=== PATIENT | male | born 1985 | race American Indian/Alaskan Native ===

== ENCOUNTER 2016-06-12 03:08 | Emergency (ER) | payer MEDICARE ==
[2016-06-12 04:08] VITALS: BP 102/68
[2016-06-12 04:47] LABS: Basophils % (Auto) 0.4 % (0.0-1.8); Eosinophils % (Auto) 0.1 % (0.0-4.3); Hematocrit 42.7 % (35.5-45.6); Hemoglobin 13.7 gm/dl (11.8-15.2); Mean Corpuscular HGB Conc 32 % (32-34); Mean Corpuscular Volume 80 fl (84-94); Platelet Count 222 K/mm3 (140-440); Red Blood Count 5.35 M/mm3 (3.65-5.03); Red Cell Distribution Width 14.5 % (13.2-15.2); White Blood Count 10.8 K/mm3 (4.5-11.0)
[2016-06-12 05:12] LABS: Anion Gap 19 mmol/L; BUN/Creatinine Ratio 16.36; Blood Urea Nitrogen 18 mg/dL (9-20); Calcium 9.4 mg/dL (8.4-10.2); Carbon Dioxide 26 mmol/L (22-30); Chloride 97.6 mmol/L (98-107); Glucose 109 mg/dL (75-100); Potassium 3.7 mmol/L (3.6-5.0); Sodium 139 mmol/L (137-145)
[2016-06-12 05:21] LABS: Mean Corpuscular Hemoglobin 26 pg (28-32)
--- NOTE | 2016-06-14 16:54 | ED Elopement Review ---
ED Pt Elopement review - Results review Lab results: Laboratory Tests 06/12/16 06/12/16 06/12/16 04:31 04:31 04:31 WBC 10.8 RBC 5.35 H Hgb 13.7 Hct 42.7 MCV 80 L MCH 26 L MCHC 32 RDW 14.5 Plt Count 222 Lymph % (Auto) 21.9 [place] % (Auto) 4.9 Eos % (Auto) 0.1 Baso % (Auto) 0.4 Lymph # 2.4 [place] # 0.5 Eos # 0.0 Baso # 0.0 Seg Neutrophils % 72.7 H Seg Neutrophils # 7.9 H Sodium 139 Potassium 3.7 Chloride 97.6 L Carbon Dioxide 26 Anion Gap 19 BUN 18 Creatinine 1.1 Estimated GFR > 60 BUN/Creatinine Ratio 16.36 Glucose 109 H Calcium 9.4 Plasma/Serum Alcohol < 0.01 - Call Back decision Pt Call Back Decision: No action required
== END 2016-06-12 10:00 | disposition left against medical advice (07) ==
LOC: ED 03:08 → EEVIPCON 03:08 → ED 10:00
DX: Z00.8 Encounter for other general examination (principal); Z53.21 Procedure and treatment not carried out due to patient leaving prior to being seen by health care provider
CPT/HCPCS: 36415; 80048; 85025; G0480; 80320

== ENCOUNTER 2017-02-05 11:49 | Emergency (ER) | payer MEDICARE ==
--- NOTE | 2017-02-05 16:02 | Emergency Department Report ---
ED General Adult HPI - General Chief complaint: Skin Rash Stated complaint: ITCHING Time Seen by Provider: 02/05/17 15:41 Source: patient Mode of arrival: Ambulatory Limitations: No Limitations - History of Present Illness Initial comments: Pt states he needs something for the itching. PT states he is afraid he has caught crabs. PT denies seeing any insect or bugs on him. PT c/o itching x 3 days. PT states he is living at [place] and a lot of people share things and are itching. PT states his itching is worse at night. PT states he itches everywhere but it is worse on his hands and feet. PT states he has not noticed a rash. PT denies other symptoms. MD Complaint: Itching. -: Gradual, days(s) Location: upper extremity, lower extremity Severity scale (0 -10): 0 Quality: constant (itching ) Consistency: constant Associated Symptoms: denies: chest pain, fever/chills, nausea/vomiting, rash - Related Data Home Medications Medication Instructions Recorded Confirmed Last Taken Benztropine [Cogentin] 1 mg PO BID 06/07/13 06/07/13 06/07/13 12:00 risperiDONE [Risperdal] 0.5 tab PO BID 06/07/13 06/07/13 06/07/13 12:00 Previous Rx's Medication Instructions Recorded Last Taken Type HYDROcodone/APAP 5-325 [[place] 1 each PO Q6HR PRN #12 tablet 06/07/13 Unknown Rx 5/325 mg] Prednisone [predniSONE] 20 mg PO QDAY #5 tab 07/18/13 Unknown Rx Lidocaine Viscous 2% [Xylocaine 10 ml MM Q3H PRN #240 ml 10/21/13 Unknown Rx Viscous 2%] Permethrin 5% [Acticin 5% CREAM] 1 applicatio TP ONCE #1 tube 02/05/17 Unknown Rx hydrOXYzine PAMOATE [Vistaril] 25 mg PO Q6HR PRN #12 capsule 02/05/17 Unknown Rx Allergies Allergy/AdvReac Type Severity Reaction Status Date / Time iodine Allergy Itching Verified 06/07/13 14:59 ED Review of Systems ROS: Stated complaint: ITCHING Other details as noted in HPI Comment: All other systems reviewed and negative Constitutional: denies: chills, fever Cardiovascular: denies: chest pain Gastrointestinal: denies: abdominal pain, nausea, vomiting Musculoskeletal: denies: back pain Skin: denies: rash Neurological: denies: headache ED Past Medical Hx - Past Medical History Hx Psychiatric Treatment: Yes (schizophrenia) Additional medical history: DRUG ABUSE - Surgical History Past Surgical History?: No - Social History Smoking Status: Never Smoker Substance Use Type: None, Cocaine, Marijuana - Medications Home Medications: Home Medications Medication Instructions Recorded Confirmed Last Taken Type Benztropine [Cogentin] 1 mg PO BID 06/07/13 06/07/13 06/07/13 12:00 History HYDROcodone/APAP 5-325 [[place] 1 each PO Q6HR PRN #12 tablet 06/07/13 Unknown Rx 5/325 mg] risperiDONE [Risperdal] 0.5 tab PO BID 06/07/13 06/07/13 06/07/13 12:00 History Prednisone [predniSONE] 20 mg PO QDAY #5 tab 07/18/13 Unknown Rx Lidocaine Viscous 2% [Xylocaine 10 ml MM Q3H PRN #240 ml 10/21/13 Unknown Rx Viscous 2%] Permethrin 5% [Acticin 5% CREAM] 1 applicatio TP ONCE #1 tube 02/05/17 Unknown Rx hydrOXYzine PAMOATE [Vistaril] 25 mg PO Q6HR PRN #12 capsule 02/05/17 Unknown Rx ED Physical Exam - General Limitations: No Limitations General appearance: alert, in no apparent distress - Head Head exam: Present: atraumatic, normocephalic, normal inspection - Eye Eye exam: Present: normal appearance. Absent: PERRL, EOMI, conjunctival injection - ENT ENT exam: Present: normal exam, mucous membranes moist, normal external ear exam - Neck Neck exam: Present: normal inspection, tenderness, full ROM - Respiratory Respiratory exam: Present: normal lung sounds bilaterally. Absent: respiratory distress, chest wall tenderness - Cardiovascular Cardiovascular Exam: Present: regular rate, normal rhythm, normal heart sounds - GI/Abdominal GI/Abdominal exam: Present: soft. Absent: tenderness, guarding, rebound - Extremities Exam Extremities exam: Present: normal inspection, full ROM - Back Exam Back exam: Present: normal inspection, full ROM. Absent: tenderness, CVA tenderness (R), CVA tenderness (L) - Neurological Exam Neurological exam: Present: alert, oriented X3, normal gait - Psychiatric Psychiatric exam: Present: flat affect. Absent: anxious - Skin Skin exam: Present: warm, dry, intact, rash - Expanded Skin Exam Expanded Type of lesion: Absent: abscess, laceration Description of rash: Present: erythematous, macular (rash to L 5th finger and L 2nd toe. ). Absent: swelling, papular ED Course Vital Signs 02/05/17 02/05/17 11:56 16:41 Temperature 98.2 F 99 F Pulse Rate 71 61 Respiratory 17 16 Rate Blood Pressure 119/72 Blood Pressure 103/63 [Left] O2 Sat by Pulse 96 98 Oximetry - Reevaluation(s) Reevaluation #1: 02/05/17 16:09 History and exam findings are concerning for scabies. PT aware of dx and plan of care. - Pulse Oximetry Interpretation Digit-Finger Initial Pulse Oximetry Readin Actions Taken: none ED Medical Decision Making - Differential Diagnosis rash, scabies Critical Care Time: No Critical care attestation.: If time is entered above; I have spent that time in minutes in the direct care of this critically ill patient, excluding procedure time. ED Disposition Clinical Impression: Scabies, Itching Disposition: DC-01 TO HOME OR SELFCARE Is pt being admited?: No Does the pt Need Aspirin: No Condition: Stable Instructions: Scabies (ED) Additional Instructions: Do not drink alcohol or drive after taking Vistaril. Follow up with PCP in 3-5 days close contacts with rash will need treatment. Prescriptions: hydrOXYzine PAMOATE [Vistaril] 25 mg PO Q6HR PRN #12 capsule PRN Reason: Itching Permethrin 5% [Acticin 5% CREAM] 1 applicatio TP ONCE #1 tube Referrals: PRIMARY CARE, [Primary Care Provider] - 3-5 Days EMMETT HOPKINS MD [Staff Physician] - 3-5 Days [facility] [Outside] - 3-5 Days Time of Disposition: 16:12
[2017-02-05 16:55] VITALS: BP 103/63
== END 2017-02-05 16:55 | disposition home or self-care (01) ==
LOC: ED 11:49
DX: B86 Scabies (principal); F14.10 Cocaine abuse, uncomplicated; F12.10 Cannabis abuse, uncomplicated; F20.9 Schizophrenia, unspecified
CPT/HCPCS: 99282

== ENCOUNTER 2017-02-07 09:05 | Emergency (ER) | payer MEDICARE ==
--- NOTE | 2017-02-07 11:24 | Emergency Department Report ---
ED Rash HPI - HPI Chief Complaint: Skin Rash Stated Complaint: RASH Time Seen by Provider: 02/07/17 10:58 Duration: 3 Days Location: Chest, Back, Abdomen, Upper Extremities Suspected Cause: Unknown Rash Symptoms: Yes Itching (to chest, back, abdomen and upper extremities), No Facial Swelling, No Tongue/Oral Swelling, No Breathing Difficulties, No Choking Sensation, No Wheezing/Dyspnea, No Peeling, No Blistering, No Fever, No Lightheaded, No Malaise, No Myalgias Severity: moderate (itching. no pain) Other History: Patient was here on 02/05/2017 and was treated for scabies with Vistaril and permethrin cream. He is now back report that he has a rash on his body that is iching. He said he uses permethrin cream and medication was given to him on 02/05 2017 and he felt better but now in the last 3 days he is having recurring rash and itching that is not similar to previous complaints. Immunizations up-to-date. He is not having any respiratory complaints. Denies any fever or chills. ED Review of Systems ROS: Stated complaint: RASH Other details as noted in HPI Comment: All other systems reviewed and negative Constitutional: no symptoms reported ENT: denies: throat pain, congestion Respiratory: no symptoms reported Cardiovascular: denies: chest pain, palpitations, edema, syncope Gastrointestinal: denies: nausea, vomiting Musculoskeletal: denies: back pain, joint swelling, arthralgia, myalgia Skin: rash, pruritus Neurological: denies: headache, numbness, paresthesias, confusion, abnormal gait , vertigo ED Past Medical Hx - Past Medical History Previous Medical History?: Yes Hx Psychiatric Treatment: Yes (schizophrenia) Additional medical history: DRUG ABUSE - Surgical History Past Surgical History?: No - Family History Family history: no significant - Social History Smoking Status: Current Every Day Smoker Substance Use Type: None Other Social History: Currently residing at [facility] Home Medications: Home Medications Medication Instructions Recorded Confirmed Last Taken Type Benztropine [Cogentin] 1 mg PO BID 06/07/13 06/07/13 06/07/13 12:00 History HYDROcodone/APAP 5-325 [[place] 1 each PO Q6HR PRN #12 tablet 06/07/13 Unknown Rx 5/325 mg] risperiDONE [Risperdal] 0.5 tab PO BID 06/07/13 06/07/13 06/07/13 12:00 History Prednisone [predniSONE] 20 mg PO QDAY #5 tab 07/18/13 Unknown Rx Lidocaine Viscous 2% [Xylocaine 10 ml MM Q3H PRN #240 ml 10/21/13 Unknown Rx Viscous 2%] Permethrin 5% [Acticin 5% CREAM] 1 applicatio TP ONCE #1 tube 02/05/17 Unknown Rx hydrOXYzine PAMOATE [Vistaril] 25 mg PO Q6HR PRN #12 capsule 02/07/17 Unknown Rx predniSONE [Deltasone] 50 mg PO QDAY #5 tab 02/07/17 Unknown Rx Rash Exam - Exam General: Vital signs noted. No distress. Alert and acting appropriately. 31 year-old male well-nourished well-developed in no acute distress. HEENT: No Periorbital Edema, No Conjuctival Injection, No Chemosis, No Perioral Edema, No Tongue Edema, No Uvular Edema, No Compromised Airway, No Drooling Lungs: Yes Good Air Exchange, No Wheezes, No [place], No Stridor, No Cough, No Labored Respirations, No Retractions, No Use of Accessory Muscles, No Other Abnormal Lung Sounds Skin: Yes Maculopapular Rash (located and sparsely scattered to upper extremity , chest and abdomen. Very few areas also to upper back.), Yes Erythema (to areas were rash located. No induration), No Morbilliform rash, No Bulla(e), No Excoriations, No Weeping, No Tenderness, No Edema, No Encrustations Other: Positive: Abdomen Normal, Neurologic Normal, Musculoskeletal Normal ED Course Vital Signs 02/07/17 09:08 Temperature 98.2 F Pulse Rate 85 Respiratory 16 Rate Blood Pressure 121/64 O2 Sat by Pulse 98 Oximetry - Reevaluation(s) Reevaluation #1: 02/07/17 12:27 Patient was given Decadron 10 mg IM and emergency room for acute rash with pruritus. ED Medical Decision Making - Medical Decision Making ED course: I discussed the patient that he will need to follow-up with equine manager regarding rash. I told him he will need to have skin testing to see what he is allergic to. Physical findings were contacted dermatitis with maculopapular rash scattered sparsely to anterior and posterior torso and bilateral upper extremity. Patient is not having any respiratory difficulties. He was given Decadron 10 mg IM in emergency room. I discussed diagnosis and treatment plan with patient and he voices understanding. Patient discharged home with prescription for prednisone and Atarax and to follow-up with equine manager as discussed. Critical care attestation.: If time is entered above; I have spent that time in minutes in the direct care of this critically ill patient, excluding procedure time. ED Disposition Clinical Impression: Pruritic condition Contact dermatitis Qualifiers: Contact dermatitis type: unspecified Contact dermatitis trigger: unspecified trigger Qualified Code(s): L25.9 - Unspecified contact dermatitis, unspecified cause Disposition: DC- TO HOME OR SELFCARE Is pt being admited?: No Does the pt Need Aspirin: No Condition: Stable Instructions: Contact Dermatitis (ED), Itchy Skin (ED) Additional Instructions: Please follow up with equine manager as instructed to have allergy testing of the skin Please take medication as prescribed for rash. Please do not drive or operate heavy machinery while taking Atarax as this can cause some drowsiness. Increase fluid intake Keep affected areas Clean and dry Prescriptions: hydrOXYzine PAMOATE [Vistaril] 25 mg PO Q6HR PRN #12 capsule PRN Reason: Itching predniSONE [Deltasone] 50 mg PO QDAY #5 tab Referrals: PRIMARY CARE, [Primary Care Provider] - 3-5 Days Forms: Work/School Release Form(ED)
[2017-02-07] MEDS ORDERED: DECADRON IM STA (11:25)
[2017-02-07 12:53] VITALS: BP 118/70
== END 2017-02-07 12:54 | disposition home or self-care (01) ==
LOC: ED 09:05
DX: L25.9 Unspecified contact dermatitis, unspecified cause (principal); F20.9 Schizophrenia, unspecified; F17.200 Nicotine dependence, unspecified, uncomplicated; Z88.8 Allergy status to other drugs, medicaments and biological substances
CPT/HCPCS: 96372; 99282; J1100

== ENCOUNTER 2017-02-07 10:30 | Emergency (ER) | payer MEDICARE | END 2017-02-07 10:31 | disposition home or self-care (01) | LOC: ED 10:30 | DX: R21 Rash and other nonspecific skin eruption (principal); Z53.21 Procedure and treatment not carried out due to patient leaving prior to being seen by health care provider ==

== ENCOUNTER 2017-02-14 10:29 | Emergency (ER) | payer SELFPAY | END 2017-02-14 10:58 | disposition left against medical advice (07) | LOC: ED 10:29 | DX: R51 Headache (principal); Z53.21 Procedure and treatment not carried out due to patient leaving prior to being seen by health care provider ==

== ENCOUNTER 2017-10-25 15:10 | Emergency (ER) | payer SELFPAY ==
[2017-10-25 16:06] VITALS: BP 117/66
== END 2017-10-25 16:02 | disposition left against medical advice (07) ==
LOC: ED 15:10
DX: Z76.0 Encounter for issue of repeat prescription (principal); Z53.21 Procedure and treatment not carried out due to patient leaving prior to being seen by health care provider

== ENCOUNTER 2017-10-31 12:44 | Emergency (ER) | payer MEDICARE ==
[2017-10-31 12:52] VITALS: BP 128/70
--- NOTE | 2017-10-31 13:43 | Emergency Department Report ---
Noni Doc - Documentation Documentation: I briefly evaluated Mr. Alvarado alongside my colleague Kenny Silvestre NP. Patient is concerned for chest congestion. He also made multiple benign delusional statements. He denies homicidal or suicidal ideation. He denies command hallucinations. He states that he hears the voices of his family members. He has stopped taking Risperdal and Zyprexa for the past several days. He is concerned for gynecomastia and possible fat deposits in his buttocks. He heard on the TV commercial that these are the side effects of his antipsychotic medications. He has been taking antipsychotic medication for the last 10 years without adverse medical consequences. I strongly encouraged him to resume his medications. We will provide a prescription for Risperdal. Mr. Alvarado is appropriate for discharge. He does not appear to be a harm to himself or others. He is calm. He is cooperative. He has appropriate insight.
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
== END 2017-10-31 14:10 | disposition home or self-care (01) ==
LOC: ED 12:44
DX: F20.9 Schizophrenia, unspecified (principal); F17.200 Nicotine dependence, unspecified, uncomplicated; Z91.02 Food additives allergy status
CPT/HCPCS: 99282

== ENCOUNTER 2018-08-10 04:05 | Emergency (ER) | payer MEDICARE | END 2018-08-10 04:08 | disposition left against medical advice (07) | LOC: ED 04:05 ==

== ENCOUNTER 2018-08-13 18:27 | Emergency (ER) | payer MEDICARE ==
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
== END 2018-08-13 20:45 | disposition home or self-care (01) ==
LOC: ED 18:27

== ENCOUNTER 2019-06-13 16:08 | Outpatient (CLI) | payer MEDICARE ==
--- NOTE | 2019-06-13 17:10 | XRay Report ---
RIGHT LOWER LEG 2 VIEWS INDICATION / CLINICAL INFORMATION: Right lower leg pain. COMPARISON: None available. FINDINGS: BONES / JOINT(S): There is no evidence of fracture, subluxation or destructive lesion.. There are min imal degenerative changes involving the knee. There is mild spurring at the insertion of the Achilles tendon on the calcaneus. SOFT TISSUES: No significant abnormality. ADDITIONAL FINDINGS: None. IMPRESSION: No acute abnormality. Signer Name: Efraín Turcios MD Signed: 06/13/2019 5:06 PM Workstation Name: [id number]
--- NOTE | 2019-06-13 17:21 | XRay Report ---
BILATERAL FEET 6 VIEWS INDICATION / CLINICAL INFORMATION: Bilateral foot pain. COMPARISON: None available. FINDINGS: BONES / JOINT(S): There are minimally displaced fractures of the right third and fourth proximal phal anges at the level of the proximal shafts appear acute or subacute. There may be mild bony callus for mation present. There is minimal spurring at the insertion of the Achilles tendon on the right calcan eus with mild spurring at the insertion of the Achilles tendon on the left calcaneus. No significant arthritis. SOFT TISSUES: No significant abnormality. ADDITIONAL FINDINGS: None. IMPRESSION: Fractures of the right third and fourth proximal phalanges. Signer Name: Efraín Turcios MD Signed: 06/13/2019 5:17 PM Workstation Name: [id number]
== END 2019-06-13 16:09 | disposition home or self-care (01) ==
LOC: XRAY 16:08
PROVIDERS: ATTEND Orthopaedic Surgery
DX: S92.811A Other fracture of right foot, initial encounter for closed fracture (principal); M77.32 Calcaneal spur, left foot; M77.31 Calcaneal spur, right foot; X58.XXXA Exposure to other specified factors, initial encounter; Y93.89 Activity, other specified; Y92.89 Other specified places as the place of occurrence of the external cause; Y99.8 Other external cause status

== ENCOUNTER 2019-06-26 07:36 | Emergency (ER) | payer MEDICARE | END 2019-06-26 07:45 | LOC: ED 07:36 | DX: F20.9 Schizophrenia, unspecified (principal); Z53.21 Procedure and treatment not carried out due to patient leaving prior to being seen by health care provider ==

== ENCOUNTER 2019-07-05 23:36 | Emergency (ER) | payer MEDICARE ==
[2019-07-05 23:57] VITALS: BP 115/67
--- NOTE | 2019-07-06 00:14 | Emergency Department Report ---
Chief Complaint: Dental/Oral Stated Complaint: TOOTHACHE Time Seen by Provider: 07/06/19 00:10 - HPI History of Present Illness: 34-year-old -[place] male presents to the emergency room complaining of a toothache. Patient states that is been going on for about a month. Patient reports he has not taken anything but Zyprexa for pain. Patient reports that the Zyprexa make him sleep. Patient has not seen a dentist has not taken any Tylenol or Motrin for pain management. Patient reports his pain is a 5 out of 10. Past medical history of schizophrenia and drug abuse. - ROS Review of Systems: Alert and oriented x3 no acute distress - Exam Vital Signs: Vital Signs 07/05/19 23:40 Temperature 98.3 F Pulse Rate 93 H Respiratory 18 Rate Blood Pressure 115/67 O2 Sat by Pulse 97 Oximetry Physical Exam: Mouth: Oral mucosa is moist patient does have a cavity in tooth #29. There is no gingival enlargement there is no abscess appreciated. No facial swelling or tenderness MSE screening note: Focused history and physical exam performed. Due to findings the following was ordered: 34-year-old -Lat[place]ian male presents to the emergency room complaining of a toothache. Patient states that is been going on for about a month. Patient reports he has not taken anything but Zyprexa for pain. Patient reports that the Zyprexa make him sleep. Patient has not seen a dentist has not taken any Tylenol or Motrin for pain management. Patient reports his pain is a 5 out of 10. Past medical history of schizophrenia and drug abuse. Discussed with patient he can take [id number] Tylenol or ibuprofen. Patient can get it from [facility] or [facility]. Patient is to follow-up with a dentist. ED Disposition for MSE Clinical Impression: Tooth ache, Dental cavity Disposition: DC-01 TO HOME OR SELFCARE Is pt being admited?: No Does the pt Need Aspirin: No Condition: Stable Instructions: Toothache (ED), Dental Caries (ED) Additional Instructions: Discussed with patient he can take [id number] Tylenol or ibuprofen. Patient can get it from [facility] or [facility]. Patient is to follow-up with a dentist. Referrals: [facility] [Outside] - 3-5 Days [facility] [Outside] - 3-5 Days [facility] [Outside] - 3-5 Days
== END 2019-07-06 00:23 | disposition home or self-care (01) ==
LOC: ED 23:36
DX: K02.9 Dental caries, unspecified (principal); Z91.09 Other allergy status, other than to drugs and biological substances
CPT/HCPCS: 99282

== ENCOUNTER 2019-11-01 12:14 | Emergency (ER) | payer MEDICARE ==
--- NOTE | 2019-11-01 12:43 | Emergency Department Report ---
Chief Complaint: Urogenital-Male Stated Complaint: STD CHECK Time Seen by Provider: 11/01/19 12:35 - HPI History of Present Illness: This is a 34-year-old male nontoxic, well in appearance with no signs of distress presents to the ED for STD check. Patient stated that his partner called and said has STD. Patient stated he is asymptotic. Denies any penile discharge, testicular pain, or swelling. Patient denies any urinary symptoms. Patient denies any fever, chills, headache, nausea, vomiting, chest pain or shortness of breathe. denies any other symptoms or complaints. Denies any allergies or PMH. - Exam Physical Exam: no penile discharge. No urinary symptoms. no flank or abdominal pain. Normal physical exam. MSE screening note: Focused history and physical exam performed. Due to findings the following was ordered: ED Medical Decision Making - Medical Decision Making This is a 34-year-old male that presents with nonmedical emergency complaint. Patient is just requested for a STD test. Patient denies any symptoms. I gave patient many different referrals to follow-up with STD concerns. Patient was instructed to Follow-up with a primary care doctor in 3-5 days or if symptoms worsen and continue return to emergency room as soon as possible. At time of discharge, the patient does not seem toxic or ill in appearance. No acute signs of distress noted. Patient agrees to discharge treatment plan of care. No further questions noted by the patient. ED Disposition for MSE Clinical Impression: Possible exposure to STD Disposition: Z-07 MED SCREENING EXAM-LEFT Is pt being admited?: No Does the pt Need Aspirin: No Condition: Stable Instructions: Safe Sex (ED) Additional Instructions: Follow-up with a primary care doctor in 3-5 days or if symptoms worsen and continue return to emergency room as soon as possible. Referrals: PRIMARY MD FERNANDO [Referring] - 3-5 Days DANTE CALZADA MD [Staff Physician] - 3-5 Days
[2019-11-01 12:45] VITALS: BP 134/68
== END 2019-11-01 13:11 | disposition left against medical advice (07) ==
LOC: ED 12:14
DX: Z20.2 Contact with and (suspected) exposure to infections with a predominantly sexual mode of transmission (principal); Z53.21 Procedure and treatment not carried out due to patient leaving prior to being seen by health care provider

== ENCOUNTER 2020-10-28 16:53 | Emergency (ER) | payer MEDICARE ==
--- NOTE | 2020-10-28 22:38 | Emergency Department Report ---
ED Rash HPI - HPI Chief Complaint: Skin Rash Stated Complaint: ITCHING/RASH Time Seen by Provider: 10/28/20 21:51 Location: Chest, Upper Extremities, Lower Extremities Suspected Cause: Unknown Rash Symptoms: Yes Itching, No Facial Swelling, No Tongue/Oral Swelling, No Breathing Difficulties, No Choking Sensation, No Wheezing/Dyspnea, No Peeling, No Blistering, No Fever, No Lightheaded, No Malaise, No Myalgias Severity: moderate Other History: This is a 35-year-old male who presents to the ED complaining of rash that has been ongoing for the past couple of weeks. Patient states that he was prescribed some cream and pills which she does not recollect and has no relief. Patient describes the rash as itching at some point was pus filled but now cleared. ED Review of Systems ROS: Stated complaint: ITCHING/RASH Other details as noted in HPI Comment: All other systems reviewed and negative ED Past Medical Hx - Past Medical History Hx Psychiatric Treatment: Yes (schizophrenia) Additional medical history: DRUG ABUSE - Surgical History Past Surgical History?: No - Social History Smoking Status: Current Every Day Smoker Substance Use Type: Alcohol, Cocaine - Medications Home Medications: Home Medications Medication Instructions Recorded Confirmed Last Taken Type Benztropine [Cogentin] 1 mg PO BID 06/07/13 06/07/13 06/07/13 12:00 History HYDROcodone/APAP 5-325 [[place] 1 each PO Q6HR PRN #12 tablet 06/07/13 Unknown Rx 5/325 mg] risperiDONE [Risperdal] 0.5 tab PO BID 06/07/13 06/07/13 06/07/13 12:00 History Lidocaine Viscous 2% [Xylocaine 10 ml MM Q3H PRN #240 ml 10/21/13 Unknown Rx Viscous 2%] Permethrin 5% [Acticin 5% CREAM] 1 applicatio TP ONCE #1 tube 02/05/17 Unknown Rx hydrOXYzine PAMOATE [Vistaril] 25 mg PO Q6HR PRN #12 capsule 02/07/17 Unknown Rx predniSONE [Deltasone] 50 mg PO QDAY #5 tab 02/07/17 Unknown Rx risperiDONE [RisperDAL] 0.5 mg PO BID #60 tablet 10/31/17 Unknown Rx Pramoxine HCl/Calamine [Calamine 1 applic TP DAILY #1 lotion 10/29/20 Unknown Rx Medicated Lotion] cephALEXin [Keflex] 500 mg PO Q12HR #14 cap 10/29/20 Unknown Rx predniSONE 20 mg PO QDAY #5 tab 10/29/20 Unknown Rx Rash Exam - Exam General: Vital signs noted. No distress. Alert and acting appropriately. HEENT: No Periorbital Edema, No Conjuctival Injection, No Chemosis, No Perioral Edema, No Tongue Edema, No Uvular Edema, No Compromised Airway, No Drooling Lungs: Yes Good Air Exchange (Normal Breath Sounds), No Wheezes, No Ronchi, No Stridor, No Cough, No Labored Respirations, No Retractions, No Use of Accessory Muscles, No Other Abnormal Lung Sounds Heart: Yes Regular, No Murmur Skin: Yes Urticarial Rash, Yes Maculopapular Rash, No Morbilliform rash, No Bulla(e), No Excoriations, No Weeping, No Tenderness, No Erythema, No Edema, No Encrustations Other: Positive: Abdomen Normal, Neurologic Normal, Musculoskeletal Normal ED Course Vital Signs 10/28/20 19:21 Temperature 98.3 F Pulse Rate 87 Respiratory 18 Rate Blood Pressure 115/74 O2 Sat by Pulse 99 Oximetry ED Medical Decision Making - Medical Decision Making This 35-year-old male presented with a rash of unknown origin. Discussed treatment of rash with patient. Patient has not sustained any fever rash has been going on for couple of weeks. Discussed follow-up with a wool merchant. Discussed follow-up with primary care physician. Patient is in no acute distress. Patient speaking in clear sentences. Patient will be given oral steroids and some antibiotics. Vital signs are normal. Discussed return to ED if any worsening symptoms. Critical care attestation.: If time is entered above; I have spent that time in minutes in the direct care of this critically ill patient, excluding procedure time. ED Disposition Clinical Impression: Rash and nonspecific skin eruption Disposition: DC-01 TO HOME OR SELFCARE Is pt being admited?: No Does the pt Need Aspirin: No Condition: Stable Instructions: Rash, Adult, [id number] Additional Instructions: Make sure to follow up with the primary care physician as discussed. Take all your medications as you've been prescribed. If you have any worsening symptoms or develop new symptoms please return to ED immediately. Prescriptions: Pramoxine HCl/Calamine [Calamine Medicated Lotion] 1 applic TP DAILY #1 lotion cephALEXin [Keflex] 500 mg PO Q12HR #14 cap predniSONE 20 mg PO QDAY #5 tab Referrals: [facility] [Outside] - 3-5 Days [facility] [Outside] - 3-5 Days Forms: Work/School Release Form(ED) Time of Disposition: 00:16
== END 2020-10-29 00:45 | disposition home or self-care (01) ==
LOC: ED 16:53
CPT/HCPCS: 99282